=== PATIENT | male | born 1980 | race Caucasian/White ===

== ENCOUNTER 2017-10-02 13:03 | Outpatient (CLI) | payer BC | END 2017-10-02 13:04 | disposition home or self-care (01) | LOC: SC 13:03 | PROVIDERS: ATTEND Internal Medicine Pulmonary Disease | DX: G47.30 Sleep apnea, unspecified (principal); G47.10 Hypersomnia, unspecified; R06.83 Snoring; G47.8 Other sleep disorders; G47.00 Insomnia, unspecified | CPT/HCPCS: 99203; 99212 ==

== ENCOUNTER 2018-09-25 10:31 | Outpatient (CLI) | payer BC ==
--- NOTE | 2018-09-25 11:12 | CONSULTATION NOTE ---
Information from patient questionnaire entered by Angeles Lebron. I have reviewed and concur with the information entered by Angeles Lebron. This document represents the service I personally performed and the decisions made by me, Alberto Tuttle MD, [facility]. - History of Present Illness HPI: BREA ARMIJO was suspected to have obstructive sleep apnea and a sleep study was ordered a year ago. He never had the study because a message stating the time and date of the study was left on his phone but he never got it. He continues to snore loudly and his continues to see him quit breathing at night. He gained 15 lbs since he was last seen. 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 He complains of feeling sleepy at work. He has fallen asleep several times driving - Subjective Initial [place] Sleepiness Scale score: 18 Current [place] Sleepiness Scale score: 17 - Review of Systems Review of systems same as previous: Yes - Allergies/Medications Allergies hydrocodone [Hydrocodone] Allergy (Intermediate, Verified 07/30/12 16:49) Itching Home Medications Escitalopram Oxalate 10 mg PO DAILY 09/17/18 [History Confirmed 09/17/18] Allergies and home medications reviewed: Yes - Physical Examination Weight (kg): 102.076 kg - Impression Suspected Obstructive Sleep Apnea-Hypopnea Syndrome, as suggested by history of loud and irregular snoring, observed cessation of breath while asleep, unrefreshed sleep, and daytime hypersomnolence. Narrow oropharynx and obesity are common predisposing factors for obstructive sleep apnea-hypopnea syndrome. Pathophysiology of sleep-disordered breathing was discussed. I recommend proceeding to polysomnography to confirm the diagnosis and to assess severity. I informed the patient of what the sleep studies involve and after some discussion, he agreed to proceed. - Plan Plan: 1. Schedule polysomnography and return in 1 to 2 weeks after the study to discuss results. 2. Avoid long distance driving or when feeling sleepy. 3. Avoid alcohol, sedative and muscle relaxant around bedtime. 4. Attempt to lose weight. I spent 100% of this 15 minute visit face to face with the patient with greater than 50% of this was spent time counseling the patient and coordination of care.
== END 2018-09-25 10:32 | disposition home or self-care (01) ==
LOC: SC 10:31
PROVIDERS: ATTEND Internal Medicine Pulmonary Disease
DX: G47.10 Hypersomnia, unspecified (principal); G47.8 Other sleep disorders; R06.81 Apnea, not elsewhere classified; R06.83 Snoring
CPT/HCPCS: 99212; 99213

== ENCOUNTER 2018-10-16 20:28 | Outpatient (CLI) | payer BC | END 2018-10-16 20:29 | disposition home or self-care (01) | LOC: SC 20:28 | PROVIDERS: ATTEND Internal Medicine Pulmonary Disease | DX: G47.33 Obstructive sleep apnea (adult) (pediatric) (principal); G47.61 Periodic limb movement disorder | CPT/HCPCS: 95810 ==

== ENCOUNTER 2019-01-08 14:09 | Outpatient (CLI) | payer BC ==
--- NOTE | 2019-01-08 16:40 | SLEEP CARE CONSULTATION ---
Information from patient questionnaire entered by Lauren Wilkerson. I have reviewed and concur with the information entered by Lauren Wilkerson. This document represents the service I personally performed and the decisions made by me, Alberto Tuttle MD, [facility]. History of Present Illness Initial [place] Sleepiness Scale score: 18 Current [place] Sleepiness Scale score: 14 Additional HPI information: HPI: Mr. Finn returned for follow up of the sleep study he had two months ago (he had surgery and could not return for a follow up). The polysomnography showed that The patient had normal sleep efficiency. The sleep architecture was relatively normal as well considering the first night effect. Respiratory monitoring showed mild obstructive sleep apnea-hypopnea (AHI = 5.4) associated with oxyhemoglobin desaturation and mild hypoxia (yessenia oxygen saturation of 88 %) but not sleep fragmentation. The respiratory events occurred independently of sleep stage and body position (supine AHI = 5.3; non-supine = 5.47). Snore was moderate to loud in intensity. There was moderate periodic leg movement of sleep not associated with sleep fragmentation. Cardiac rhythm was normal sinus rhythm without significant arrhythmia. No abnormal behavior (parasomnia) observed during the night. The patient was informed of these findings. I explained to him the pathophysiology behind obstructive sleep apnea. We then spent quite a bit of time discussing different treatment options. For mild obstructive sleep apnea, surgery and oral appliance are alternatives to nasal CPAP therapy but in moderate or severe cases, nasal CPAP is the most effective and reliable treatment. Weight loss in an obese individual is strongly recommended. After some discussion, he opted to go with the nasal CPAP therapy. He has a CPAP at home that was given to him. He has not used it because he does not have a mask. Allergies and Home Medications Drug allergies reviewed: Yes Home medication list reviewed: Yes Review of Systems Review of systems same as previous: Yes Physical Exam Weight: 225 lb Impression and Plan IMPRESSION: 1. Obstructive Sleep Apnea-Hypopnea Syndrome, mild, associated with mild hypoxemia. Possibly, this is the cause of the patients symptoms of unrefreshed sleep, and excessive daytime sleepiness. As mentioned above, the patient will return for a manual CPAP/BiPAP titration study to determine the optimal pressure setting and the correct mask. PLAN: 1. Schedule a manual CPAP/BiPAP titration study. 2. Attempt to lose some weight and avoid alcohol consumption near bedtime. 3. Return for follow up after the sleep study. I spent 100% of this 20 minute visit face to face with the patient with greater than 50% of this was spent time counseling the patient and coordination of care.
== END 2019-01-08 14:10 | disposition home or self-care (01) ==
LOC: SC 14:09
PROVIDERS: ATTEND Internal Medicine Pulmonary Disease
DX: G47.33 Obstructive sleep apnea (adult) (pediatric) (principal)
CPT/HCPCS: 99212; 99213

== ENCOUNTER 2019-02-11 19:53 | Outpatient (CLI) | payer BC | END 2019-02-11 19:54 | disposition home or self-care (01) | LOC: SC 19:53 | PROVIDERS: ATTEND Internal Medicine Pulmonary Disease | DX: G47.33 Obstructive sleep apnea (adult) (pediatric) (principal) | CPT/HCPCS: 95811 ==

== ENCOUNTER 2019-02-18 14:51 | Outpatient (CLI) | payer BC ==
--- NOTE | 2019-02-18 15:15 | SLEEP CARE CONSULTATION ---
Information from patient questionnaire entered by Lauren Wilkerson. I have reviewed and concur with the information entered by Lauren Wilkerson. This document represents the service I personally performed and the decisions made by me, Alberto Tuttle MD, [facility]. History of Present Illness Initial [place] Sleepiness Scale score: 18 Current [place] Sleepiness Scale score: 18 Additional HPI information: HPI: Mr. Finn returned for follow up of the manual CPAP/BiPAP titration study he had on 02/11/19. The polysomnography showed that CPAP was initiated at 4 cmH2O and titrated up to CPAP at 9 cmH2O. CPAP at 9 cmH2O appeared to be optimal (AHI of 4.8 per hour on the pressure). There was supine REM sleep on the pressure. Oxygen saturation was minimally low. Lower CPAP settings allowed more frequent residual respiratory events. The patient appeared to have tolerated po sitive airway pressure therapy very well. The patients sleep efficiency was normal. The sleep architecture was normal as well. There was no significant periodic leg movement of sleep. Cardiac rhythm was normal sinus rhythm without significant arrhythmia. No abnormal behavior (parasomnia) observed during the night. The patient was informed of these findings. The patient tells me that he is using a CPAP at home. It came from a friend and he uses the mask that we gave him. He has not felt significantly better yet. He does not know what pressure is set on the machine. Allergies and Home Medications Drug allergies reviewed: Yes Home medication list reviewed: Yes Review of Systems Review of systems same as previous: Yes Physical Exam Weight: 225 lb Impression and Plan IMPRESSION: 1. Obstructive Sleep Apnea-Hypopnea Syndrome, mild, adequately controlled with CPAP at 9 cmH2O. Based on the study, I will order him an autoCPAP set between 8 and 12 cmH2O. I anticipate good treatment compliance. If he wants to keep using his friends machine, we will need to set it to 10 14 cmH2O. PLAN: 1. Prescription made for an autoCPAP, heated humidifier, and related supplies. 2. Attempt to lose weight and avoid alcohol consumption near bedtime. 3. Bring his friends machine in if the would like to keep using it instead of getting a new one. 4. Return in six weeks for follow up. I will assess his response and compliance at that time. I spent 100% of this 20 minute visit face to face with the patient with greater than 50% of this was spent time counseling the patient and coordination of care.
== END 2019-02-18 14:52 | disposition home or self-care (01) ==
LOC: SC 14:51
PROVIDERS: ATTEND Internal Medicine Pulmonary Disease
DX: G47.33 Obstructive sleep apnea (adult) (pediatric) (principal)
CPT/HCPCS: 99212; 99213

== ENCOUNTER 2021-06-02 19:25 | Emergency (ER) | payer BC ==
--- NOTE | 2021-06-02 20:14 | ED Physician Documentation ---
History of Present Illness - Stated complaint Stated Complaint: C+/HEART RACE/COLD HANDS - Chief complaint Chief Complaint: Resp - History obtained from History obtained from: Patient - History of Present Illness Timing: How many days ago (3) Pain level max: 0 Pain level now: 0 - Additonal information Additional information: 40-year-old male tested positive for Covid 3 days ago. Today he felt mildly lightheaded when he stood up and his hands felt cold. Also felt mildly short of breath earlier today. His took his vital signs and his oxygen saturation was between 90 and 94, heart rate was between 85 and 100. They contacted the nurse advice line who recommended he come here for evaluation. No fevers. Has had 2 Covid vaccinations but not a booster. Review of Systems Constitutional: denies: Fever, Chills Throat: denies: Sore throat Cardiac: denies: Chest pain / pressure, Palpitations GI: denies: Vomiting, Diarrhea Skin: denies: Rash Musculoskeletal: denies: Neck pain, Back pain Neurologic: denies: Headache PD PAST MEDICAL HISTORY - Past Medical History Cardiovascular: None Respiratory: None Endocrine/Autoimmune: None GI: Other : None HEENT: None Psych: None Musculoskeletal: None Derm: None - Past Surgical History Past Surgical History: Yes General: Appendectomy, EGD - Present Medications Home Medications: Ambulatory Orders Medication Instructions Recorded Confirmed Zolpidem Tartrate [Ambien] 1 - 2 tab ORAL QPM PRN 04/06/14 09/17/18 Escitalopram Oxalate 10 mg PO DAILY 09/17/18 09/17/18 Cyclobenzaprine [Flexeril] 06/02/21 - Allergies Allergies/Adverse Reactions: Allergies Allergy/AdvReac Type Severity Reaction Status Date / Time hydrocodone [Hydrocodone] Allergy Intermediate Itching Verified 07/30/12 16:49 - Social History Does the pt smoke?: Yes Smoking Status: Current every day smoker Does the pt drink ETOH?: Yes Does the pt have substance abuse?: Yes PD ED PE NORMAL - Vitals Vital signs reviewed: Yes - General General: Alert and oriented X 3, No acute distress, Well developed/nourished - HEENT HEENT: PERRL, Moist mucous membranes - Neck Neck: Supple, no meningeal sign - Cardiac Cardiac: RRR, Strong equal pulses - Respiratory Respiratory: No respiratory distress, Clear bilaterally - Abdomen Abdomen: Soft, Non tender, Non distended - Derm Derm: Warm and dry - Extremities Extremities: No edema - Neuro Neuro: Alert and oriented X 3 - Psych Psych: Normal mood, Normal affect Results - Vitals Vitals: Vital Signs - 24 hr 06/02/21 06/02/21 06/02/21 19:40 19:48 20:19 Temperature 36.9 C Heart Rate 93 86 80 Respiratory 18 14 18 Rate Blood Pressure 138/84 H 138/84 H 118/76 O2 Saturation 94 97 100 Oxygen O2 Source Room air PD MEDICAL DECISION MAKING - ED course Complexity details: considered differential, d/w patient ED course: Patient is well-appearing, nontoxic. Afebrile. No hypoxia. No respiratory distress. He is vaccinated for Covid. No indication for imaging. Tolerating p.o. without difficulty. We will continue supportive care and have him follow- up with his doctor for further care. Patient counseled regarding signs and symptoms for which I believe and urgent re-evaluation would be necessary. Patient with good understanding of and agreement to plan and is comfortable going home at this time This document was made in part using voice recognition software. While efforts are made to proofread this document, sound alike and grammatical errors may occur. Departure - Departure Disposition: 01 Home, Self Care Clinical Impression: COVID-19 Condition: Good Instructions: ED URI Viral, COVID-19 [facility] Follow-Up: John Barajas MD [Primary Care Provider] - As Needed Comments: Make sure you are drinking plenty of fluids at home. Return if you worsen. Follow-up with your doctor for further care. Your vital signs and oxygen levels are normal here tonight. Discharge Date/Time: 06/02/21 20:20
[2021-06-02 20:20] VITALS: BP 118/76
== END 2021-06-02 20:20 | disposition home or self-care (01) ==
LOC: ED 19:25
DX: U07.1 COVID-19 (principal); F17.200 Nicotine dependence, unspecified, uncomplicated
CPT/HCPCS: 99281; 99282